=== PATIENT | female | born 1965 | race Native Hawaiian/Other Pacific Islander ===

== ENCOUNTER 2017-04-16 08:39 | Emergency (ER) | payer OTHER ==
[2017-04-16] MEDS ORDERED: ASPIRIN PO ONE (08:55)
[2017-04-16 09:33] LABS: Basophils % (Auto) 0.3 % (0.0-1.8); Eosinophils # (Auto) 0.1 K/mm3 (0.0-0.4); Eosinophils % (Auto) 1.9 % (0.0-4.3); Hematocrit 41.8 % (30.3-42.9); Hemoglobin 13.8 gm/dl (10.1-14.3); Lymphocytes # (Auto) 1.9 K/mm3 (1.2-5.4); Lymphocytes % (Auto) 26.7 % (13.4-35.0); Mean Corpuscular HGB Conc 33 % (30-34); Mean Corpuscular Hemoglobin 30 pg (28-32); Mean Corpuscular Volume 91 fl (79-97); Monocytes # (Auto) 0.6 K/mm3 (0.0-0.8); Monocytes % (Auto) 8.7 % (0.0-7.3); Platelet Count 255 K/mm3 (140-440); Red Blood Count 4.62 M/mm3 (3.65-5.03); Red Cell Distribution Width 13.1 % (13.2-15.2)
[2017-04-16 09:46] LABS: BUN/Creatinine Ratio 18; Blood Urea Nitrogen 9 mg/dL (7-17); Calcium 9.4 mg/dL (8.4-10.2); Hemolysis Index 11
[2017-04-16 17:28] VITALS: BP 142/83
--- NOTE | 2017-04-16 18:12 | Emergency Department Report ---
ED Chest Pain HPI - General Chief Complaint: Abdominal Pain Stated Complaint: CHEST/ABDOMINAL PAIN Time Seen by Provider: 04/16/17 18:08 Source: patient Mode of arrival: Ambulatory Limitations: No Limitations - History of Present Illness Initial Comments: This is a pleasant 51-year-old female with no significant past medical history except for hypertension and suspected In the past as well as GERD who comes in today with a four-day history of burning chest and epigastric pain with radiation to her left arm and face. She admits that she had some nausea and some vomiting. At this time she is in no distress. She has no other symptoms. She states that she carries a slight cough usually. She does not smoke or drink alcohol or take illicit drug use. She had a similar feeling about a year ago was diagnosed with an ulcer. MD Complaint: chest pain -: Gradual, days(s) (4) Onset: during rest Pain Location: substernal, epigastric Pain Radiation: LUE Severity: moderate Consistency: intermittent Improves With: nothing, other (has tried [id number] antacids with no relief) Worsens With: nothing re: nausea, vomting. denies: diaphoresis, dyspnea, sense of impending doom, other Other Symptoms: cough (chronic). denies: fever, syncope, rash, acid taste in mouth, leg swelling, palpitations, burping Treatments Prior to Arrival: none - Related Data Allergies Allergy/AdvReac Type Severity Reaction Status Date / Time Latex, Natural Rubber Allergy Vomiting Verified 04/16/17 08:55 tramadol Allergy Unknown Verified 04/16/17 08:55 Heart Score - HEART Score History: Slightly suspicious EKG: Normal Age: 45-65 Risk factors: 1-2 risk factors Troponin: 1-3x normal limit HEART Score: 3 ED Review of Systems ROS: Stated complaint: CHEST/ABDOMINAL PAIN Other details as noted in HPI Comment: All other systems reviewed and negative Constitutional: no symptoms reported Eyes: as per HPI ENT: as per HPI Respiratory: see HPI Cardiovascular: as per HPI, chest pain Endocrine: see HPI Gastrointestinal: as per HPI Genitourinary: as per HPI Musculoskeletal: as per HPI Skin: as per HPI Neurological: as per HPI Psychiatric: as per HPI Hematological/Lymphatic: as per HPI ED Past Medical Hx - Past Medical History Previous Medical History?: Yes Hx Hypertension: Yes Hx Kidney Stones: Yes - Surgical History Additional Surgical History: hysterectomy, breast reduction - Family History Family history: no significant - Social History Smoking Status: Never Smoker Substance Use Type: None ED Physical Exam - General Limitations: No Limitations General appearance: alert, in no apparent distress - Head Head exam: Present: atraumatic, normocephalic - Eye Eye exam: Present: normal appearance - ENT ENT exam: Present: mucous membranes moist - Neck Neck exam: Present: normal inspection - Respiratory Respiratory exam: Present: normal lung sounds bilaterally. Absent: respiratory distress - Cardiovascular Cardiovascular Exam: Present: regular rate, normal rhythm. Absent: systolic murmur, diastolic murmur, rubs, gallop - GI/Abdominal GI/Abdominal exam: Present: soft, normal bowel sounds - Rectal Rectal exam: Present: deferred - Extremities Exam Extremities exam: Present: normal inspection - Back Exam Back exam: Present: normal inspection - Neurological Exam Neurological exam: Present: alert, oriented X3 - Psychiatric Psychiatric exam: Present: normal affect, normal mood - Skin Skin exam: Present: warm, dry, intact, normal color. Absent: rash ED Course Vital Signs 04/16/17 04/16/17 04/16/17 08:46 08:48 17:11 Temperature 97.8 F Pulse Rate 62 59 L Respiratory 16 19 Rate Blood Pressure 122/75 122/75 Blood Pressure [Left] O2 Sat by Pulse 98 Oximetry 04/16/17 04/16/17 17:15 17:19 Temperature 97.9 F Pulse Rate 60 63 Respiratory 22 16 Rate Blood Pressure 142/83 Blood Pressure 122/81 [Left] O2 Sat by Pulse 98 98 Oximetry - Reevaluation(s) Reevaluation #1: 04/16/17 18:11 I reviewed the lab findings with the patient. I explained that 3 sets of troponin levels are negative. I believe she is low risk for any type of acute coronary event at this time. I explained to her though that she could possibly have other conditions such as a peptic ulcer, a blood clot, or other pathology that is not yet been diagnosed. She expresses understanding. She would like to leave the emergency room at this time. I offered her further workup which she states that she will get with her primary care physician. I encouraged her to see her primary care physician and get further workup. She expressed understanding. I also told her that she felt like her symptoms are changing or worsening she is more than welcome to return to the emergency room. 04/16/17 18:12 ED Medical Decision Making - Lab Data Result diagrams: 04/16/17 09:09 04/16/17 09:09 Critical care attestation.: If time is entered above; I have spent that time in minutes in the direct care of this critically ill patient, excluding procedure time. ED Disposition Clinical Impression: Atypical chest pain GERD (gastroesophageal reflux disease) Qualifiers: Esophagitis presence: with esophagitis Qualified Code(s): K21.0 - Gastro- esophageal reflux disease with esophagitis Nausea and vomiting Qualifiers: Vomiting type: unspecified Vomiting Intractability: non-intractable Qualified Code(s): R11.2 - Nausea with vomiting, unspecified Disposition: DC-01 TO HOME OR SELFCARE Is pt being admited?: No Does the pt Need Aspirin: No Condition: Stable Instructions: Abdominal Pain (ED), Chest Pain (ED) Referrals: PRIMARY CARE, [Primary Care Provider] - 3-5 Days
== END 2017-04-16 18:46 | disposition home or self-care (01) ==
LOC: ED 08:39
DX: K21.9 Gastro-esophageal reflux disease without esophagitis (principal); R11.2 Nausea with vomiting, unspecified; R07.89 Other chest pain; I10 Essential (primary) hypertension; Z90.710 Acquired absence of both cervix and uterus; Z91.040 Latex allergy status; Z91.048 Other nonmedicinal substance allergy status; Z88.8 Allergy status to other drugs, medicaments and biological substances
CPT/HCPCS: 36415; 80048; 84484; 85025; 93005; 93010